=== PATIENT | male | born 1955 | race Caucasian/White ===

== ENCOUNTER → 2017-02-04 | Outpatient (CLI) | payer BC | END | disposition home or self-care (01) | LOC: CFH 12:32 | PROVIDERS: ATTEND Nurse Practitioner Primary Care | DX: Z12.2 Encounter for screening for malignant neoplasm of respiratory organs (principal); I25.10 Atherosclerotic heart disease of native coronary artery without angina pectoris; J43.2 Centrilobular emphysema; I10 Essential (primary) hypertension; E78.2 Mixed hyperlipidemia; Z79.899 Other long term (current) drug therapy; Z87.891 Personal history of nicotine dependence | CPT/HCPCS: G0297 ==

== ENCOUNTER → 2017-06-11 | Outpatient (CLI) | payer BC | END | disposition home or self-care (01) | LOC: CFH 09:26 | PROVIDERS: ATTEND Nurse Practitioner Primary Care | DX: K76.89 Other specified diseases of liver (principal); R16.0 Hepatomegaly, not elsewhere classified; E04.9 Nontoxic goiter, unspecified; E03.9 Hypothyroidism, unspecified | CPT/HCPCS: 76536; 76700 ==

== ENCOUNTER → 2017-07-13 | Outpatient (CLI) | payer BC | END | disposition home or self-care (01) | LOC: CFH 09:22 | PROVIDERS: ATTEND Nurse Practitioner Primary Care | DX: R06.02 Shortness of breath (principal); R07.9 Chest pain, unspecified; R06.00 Dyspnea, unspecified; E55.9 Vitamin D deficiency, unspecified; E78.2 Mixed hyperlipidemia; R53.83 Other fatigue; E88.81 Metabolic syndrome and other insulin resistance; R79.9 Abnormal finding of blood chemistry, unspecified; E03.9 Hypothyroidism, unspecified; E83.110 Hereditary hemochromatosis; I10 Essential (primary) hypertension; J44.9 Chronic obstructive pulmonary disease, unspecified; Z79.899 Other long term (current) drug therapy; G47.30 Sleep apnea, unspecified | CPT/HCPCS: 71046 ==